=== PATIENT | female | born 1935 | race Asian ===

== ENCOUNTER 2017-03-09 17:40 | Emergency (ER) | payer MEDICAID, OTHER ==
[~2017-03-09] VITALS: Ht 154.9 cm; Wt 51.0 kg
[~2017-03-09 17:40] MED LIST: ASPI81CT89 PO; NITR0.4T2 SL; SYN.025 PO
[2017-03-09 18:20] VITALS: BP 155/68
--- NOTE | 2017-03-09 19:26 | NUR ---
PATIENT TO ER BED 8.
--- NOTE | 2017-03-09 19:27 | NUR ---
PATIENT PRESENTS TO ED WITH C/O DENTAL PAIN, IMPACTED MOLAR HX---HTN, HYPERLIPIDEMIA, HYPOTHYROID . PT STATES IT HURTS X2 WEEKS. DENIES N/V/D; SKIN IS PINK/WARM/DRY; AAOX4 WITH EVEN AND STEADY GAIT; LUNGS CLEAR BL; HR EVEN AND REGULAR; PT DENIES ANY FEVER, CP, SOB, OR COUGH AT THIS TIME; PATIENT STATES PAIN OF 8/10 AT THIS TIME; PATIENT POSITIONED FOR COMFORT; HOB ELEVATED; BEDRAILS UP X2; BED DOWN. PT SPEAKS [place] ISLANDER, TRANSLATED BY DAUGHTER
--- NOTE | 2017-03-09 19:43 | NUR ---
DR. TONEY AT BEDSIDE
--- NOTE | 2017-03-09 19:43 | NUR ---
David tomlin in [facility] - 03/09/17 at 1946 by MEDDCV PATIENT BEING EVALUATED BY DR. KWOK.
[2017-03-09] MEDS ORDERED: IBUPROFEN 600 MG TAB PO ONE (19:50)
[2017-03-09 20:10] VITALS: BP 137/68
--- NOTE | 2017-03-09 20:10 | NUR ---
Patient discharged with v/s stable. Written and verbal after care instructions given and explained. Patient alert, oriented and verbalized understanding of instructions. Ambulatory with steady gait. All questions addressed prior to discharge. ID band removed. Patient advised to follow up with PMD. Rx of Amoxicillin, Ibuprofen, and Tylenol #3 given. Patient educated on indication of medication including possible reaction and side effects. Opportunity to ask questions provided and answered.
== END 2017-03-09 20:10 | disposition home or self-care (01) ==
LOC: MED 17:40
DX: K02.9 Dental caries, unspecified (principal); I10 Essential (primary) hypertension; E03.9 Hypothyroidism, unspecified; E78.5 Hyperlipidemia, unspecified
CPT/HCPCS: 99283

== ENCOUNTER 2017-09-15 15:05 | Emergency (ER) | payer OTHER ==
[~2017-09-15] VITALS: Ht 153.7 cm; Wt 51.8 kg
[2017-09-15 15:30] VITALS: BP 141/61
--- NOTE | 2017-09-15 16:23 | NUR ---
PATIENT TO ER BED 1
--- NOTE | 2017-09-15 16:30 | NUR ---
81F BIB FAMILY C/O 03/09 "DULL" INTERMITTENT MID/LEFT LOWER ABDOMINAL PAIN X LAST NIGHT WITH NAUSEA. PT DENIES ANY V/D OR URINARY COMPLAINTS; PT IS AOX4, RR ARE EVEN AND UNLABORED; NAD, VSS, ER MD AWARE OF PT STATUS; WILL CONTINUE TO MONITOR.
[2017-09-15] MEDS ORDERED: ONDANSETRON 4 MG ODT PO ONE (17:00)
[2017-09-15] MEDS ORDERED: KETOROLAC 60 MG/2 ML VIAL IM ONE (17:00)
[2017-09-15] MEDS ORDERED: ONDANSETRON 4 MG/2 ML VIAL IM ONE (17:20)
--- NOTE | 2017-09-15 17:21 | NUR ---
pt to ct via caity accompanied by radiology transporter
[2017-09-15 17:27] LABS: BASOPHILS # (AUTO) 0.1 K/uL (0.00-0.22); BASOPHILS % (AUTO) 1.3 % (0.0-2.0); EOSINOPHILS % (AUTO) 0.7 % (0.0-4.0); HEMATOCRIT 33.8 % (36-48); HEMOGLOBIN 11.3 g/dL (12.0-16.0); LYMPHOCYTES # (AUTO) 0.9 K/uL (2.5-16.5); LYMPHOCYTES % (AUTO) 12.9 % (20.5-51.1); MEAN CORPUSCULAR HEMOGLOBIN 30 pg (27-31); MEAN CORPUSCULAR HGB CONC 33 g/dL (33-37); MEAN CORPUSCULAR VOLUME 90 fL (80-94); MONOCYTES # (AUTO) 0.5 K/uL (0.8-1.0); MONOCYTES % (AUTO) 7.1 % (1.7-9.3); NEUTROPHILS # (AUTO) 5.3 K/uL (1.8-7.7); PLATELET COUNT (AUTO) 128 K/uL (140-450); RED BLOOD CELL COUNT(AUTO) 3.74 MIL/uL (4.20-5.40); RED CELL DISTRIBUTION WIDTH 12.1 % (11.6-13.7); WHITE BLOOD COUNT (AUTO) 6.8 K/uL (4.8-10.8)
[2017-09-15 17:38] LABS: ANION GAP 13.8 (8-16); CHLORIDE 100 mmol/L (98-107); CREATININE 1.2 mg/dL (0.6-1.3); GLUCOSE 115 mg/dL (74-106); POTASSIUM 3.8 mmol/L (3.5-5.1); SODIUM SERUM 137 mmol/L (136-145); UREA NITROGEN, BLOOD 23 mg/dL (7-18)
[2017-09-15 17:40] LABS: ALBUMIN 3.8 g/dL (3.4-5.0); ASPARTATE AMINOTRANSFERASE 21 U/L (15-37); TOTAL BILIRUBIN 0.6 mg/dL (0.0-1.0)
--- NOTE | 2017-09-15 18:58 | NUR ---
Patient discharged with v/s stable. Written and verbal after care instructions given and explained. Patient alert, oriented and verbalized understanding of instructions. Ambulatory with steady gait. All questions addressed prior to discharge. ID band removed. Patient advised to follow up with PMD. Rx of Tramadol, Sulfazine, and Cipro given. Patient educated on indication of medication including possible reaction and side effects. Opportunity to ask questions provided and answered.
[2017-09-15 18:59] VITALS: BP 119/70
== END 2017-09-15 18:58 | disposition home or self-care (01) ==
LOC: MED 15:05
DX: K57.92 Diverticulitis of intestine, part unspecified, without perforation or abscess without bleeding (principal); I10 Essential (primary) hypertension; E03.9 Hypothyroidism, unspecified; Z79.899 Other long term (current) drug therapy
CPT/HCPCS: 36415; 74176; 80053; 85025; 96372; 99285; J1885; J2405

== ENCOUNTER 2017-09-17 00:50 | Inpatient (IN) | payer OTHER ==
[2017-09-17] VITALS (7 sets, daily range): BP systolic 111–149; BP diastolic 52–72
[~2017-09-17] VITALS: Ht 167.6 cm; Wt 64.9 kg
--- NOTE | 2017-09-17 00:51 | NUR ---
PATIENT BIB WHEELCHAIR TO ER BED 10.
--- NOTE | 2017-09-17 00:59 | NUR ---
81Y/F PT. PRESENTS TO ED WITH C/O ABDOMINAL PAIN.PT. WAS SEEN BY MD 2 DAYS AGO, DX. DIVERTICULITIS, GOT TREAT CIPRO, TRAMADOL, PAIN NOT RELIEFE WITH EPISODE OF N/V. HX. HYPOTHYROIDISM. AAO X4, AMBULATE VIA W/C. RESPIRATIONS ROOM AIR, EVEN AND UNLABORED, BL LUNG CLEAR. ABDOMEN SOFT, NON TENDER, ACTIVE BS X4. VSS, ER MADE AWARE OF PT. STATUS.
--- NOTE | 2017-09-17 00:59 | NUR ---
Patient being evaluated by at bedside.
[2017-09-17] MEDS ORDERED: NACL 0.9% 1,000 ML IV SCH (01:02)
[2017-09-17] MEDS ORDERED: metroNIDAZOLE 500 MG/NS PREMIX 100 ML IV ONE (01:05)
[2017-09-17] MEDS ORDERED: ONDANSETRON 4 MG/2 ML VIAL IVP ONE (01:05)
[2017-09-17] MEDS ORDERED: LEVOFLOXACIN 500 MG TAB PO ONE (01:05)
[2017-09-17] MEDS ORDERED: fentaNYL 0.05 MG/ML VIAL IVP ONE (01:05)
[2017-09-17 01:19] LABS: BASOPHILS # (AUTO) 0.2 K/uL (0.00-0.22); BASOPHILS % (AUTO) 2.1 % (0.0-2.0); EOSINOPHILS # (AUTO) 0.1 K/uL (0-0.4); EOSINOPHILS % (AUTO) 0.9 % (0.0-4.0); HEMATOCRIT 31.9 % (36-48); HEMOGLOBIN 10.6 g/dL (12.0-16.0); LYMPHOCYTES # (AUTO) 1.2 K/uL (2.5-16.5); LYMPHOCYTES % (AUTO) 14.7 % (20.5-51.1); MEAN CORPUSCULAR HEMOGLOBIN 30 pg (27-31); MEAN CORPUSCULAR HGB CONC 33 g/dL (33-37); MEAN CORPUSCULAR VOLUME 91 fL (80-94); MONOCYTES # (AUTO) 0.5 K/uL (0.8-1.0); MONOCYTES % (AUTO) 5.6 % (1.7-9.3); NEUTROPHILS # (AUTO) 6.2 K/uL (1.8-7.7); NEUTROPHILS % (AUTO) 76.7 % (42.2-75.2); PLATELET COUNT (AUTO) 135 K/uL (140-450); RED BLOOD CELL COUNT(AUTO) 3.51 MIL/uL (4.20-5.40); WHITE BLOOD COUNT (AUTO) 8.3 K/uL (4.8-10.8)
[2017-09-17 01:28] LABS: ANION GAP 11.2 (8-16); CARBON DIOXIDE 27.3 mmol/L (21-32); CHLORIDE 97 mmol/L (98-107); CREATININE 1.4 mg/dL (0.6-1.3); GLUCOSE 132 mg/dL (74-106); POTASSIUM 3.5 mmol/L (3.5-5.1); SODIUM SERUM 132 mmol/L (136-145); UREA NITROGEN, BLOOD 26 mg/dL (7-18)
[2017-09-17 01:35] LABS: ALBUMIN 3.6 g/dL (3.4-5.0); ASPARTATE AMINOTRANSFERASE 22 U/L (15-37); TOTAL BILIRUBIN 0.8 mg/dL (0.0-1.0)
--- NOTE | 2017-09-17 01:35 | NUR ---
Patient will be admitted to care of . Admited to TELEMETRY. Will go to [id number]. Belongings list completed. Report to AMANDA AGUIRRE.
[2017-09-17 01:39] LABS: PROTHROMBIN TIME 9.9 secs (10.8-13.4)
[2017-09-17] MEDS: NACL 0.9% 1,000 ML IV SCH ×4 (01:54→23:36)
[2017-09-17] MEDS ORDERED: METOCLOPRAMIDE 10 MG/2 ML INJ VIAL IVP PRN (01:55)
[2017-09-17] MEDS ORDERED: HYDROcodone/APAP 7.5/325 MG 1 TAB PO PRN (01:55)
[2017-09-17] MEDS ORDERED: ACETAMINOPHEN 325 MG TAB PO PRN (01:55)
--- NOTE | 2017-09-17 01:55 | NUR ---
PATIENT ADMITTED TO THE UNIT FROM ER. AMBULATORY. AWAKE, ALERT AND ORIENTED. NO SIGNS AND SYMPTOMS OF DISTRESS NOTED, NO COMPLAINTS OF PAIN AT THIS TIME. MANDARIN SPEAKER. PATIENTS CHILDREN AT BEDSIDE AND WAS ABLE TO TRANSLATE QUESTIONS TO HER. IV SITE NOTED ON LEFT AC, IVF INFUSING WELL. BED IN LOWEST POSITION, SIDE RAILS UP AND CALL LIGHT WITHIN REACH. WILL CONTINUE TO MONITOR.
[2017-09-17 01:56] LABS: APPEARANCE,URINE CLEAR (CLEAR); BILIRUBIN,URINE NEGATIVE (NEGATIVE); BLOOD, URINE NEGATIVE (NEGATIVE); COLOR,URINE YELLOW (YELLOW); LEUKOCYTE ESTERASE ,URINE NEGATIVE (NEGATIVE); NITRITE, URINE NEGATIVE (NEGATIVE); UGLUCOSE NEGATIVE (NEGATIVE)
[2017-09-17 02:04] LABS: HYALINE CASTS, URINE 0-10 /LPF (None Seen); RBC,URINE 0-5 (RARE) /HPF (0-5); WBC,URINE 0-5 (RARE) /HPF (0-5)
[2017-09-17 02:25] LABS: BARBITURATE, URINE NEG. ng/ml (NEG <=200); BENZODIAZEPINE, URINE NEG. ng/mL (NEG <=200); CANNABINOID, URINE NEG. ng/mL (NEG <=50); COCAINE, URINE NEG. ng/mL (NEG <=300); OPIATE, URINE NEG. ng/mL (NEG <=2000); PHENCYCLIDINE SCREEN,URINE NEG. ng/mL (NEG <=25)
[2017-09-17 02:34] LABS: FREE T4 (FREE THYROXINE) 1.25 ng/dL (0.76-1.46); PHOSPHORUS 4.1 mg/dL (2.5-4.9); THYROID STIMULATING HORMONE 4.13 uIU/mL (0.34-3.74)
[2017-09-17] MEDS ORDERED: ATOR10TA PO (04:29)
[2017-09-17] MEDS ORDERED: AMLO10TA PO (04:29)
[2017-09-17 06:53] LABS: CHLORIDE 100 mmol/L (98-107); CREATININE 1.2 mg/dL (0.6-1.3); GLUCOSE 136 mg/dL (74-106); SODIUM SERUM 134 mmol/L (136-145); UREA NITROGEN, BLOOD 22 mg/dL (7-18)
--- NOTE | 2017-09-17 07:25 | NUR ---
PATIENT REPORT GIVEN TO MORNING NURSE. PATIENT IS IN STABLE CONDITION.
--- NOTE | 2017-09-17 07:30 | NUR ---
RECEIVED REPORT FROM FLEECER NURSE, PT IS RESTING IN BED, A/OX4, AMBULATES WITH ASSIST, IV IS ON THE LEFT AC, PATENT, INTACT, FLUSHING WELL, SKIN IS INTACT, NO S/S OF RESPIRATORY DISTRESS OR DISCOMFORT NOTED, SAFETY/FALL PRECAUTIONS ARE IN PLACE, DISCUSSED PLAN OF CARE WITH PT AND FAMILY, THEY BOTH VERBALIZED UNDERSTANDING, CALL LIGHT IS WITHIN REACH, WILL CONTINUE TO MONITOR.
[2017-09-17] MEDS ORDERED: metroNIDAZOLE 500 MG/NS PREMIX 100 ML IV SCH (08:00)
--- NOTE | 2017-09-17 08:31 | NUR ---
PATIENT HAS BEEN SCREENED AND CATEGORIZED MODERATE NUTRITION RISK. PATIENT WILL BE SEEN WITHIN 3-5 DAYS OF ADMISSION. 09/19/17-09/21/[address]
--- NOTE | 2017-09-17 08:42 | NUR ---
FAXED INITIAL REVIEW TO [facility], PHONE MARIBETH [phone]
[2017-09-17] MEDS: LEVOTHYROXINE 0.025 MG TAB PO SCH (08:44)
[2017-09-17] MEDS: DOCUSATE SODIUM 100 MG GELCAP PO SCH ×2 (08:44→20:19)
[2017-09-17] MEDS: amLODIPine 5 MG TAB PO SCH (08:44)
--- NOTE | 2017-09-17 08:44 | NUR ---
DUE MEDICATION GIVEN, PT TOLERATED WELL, FAMILY IS AT BEDSIDE.
[2017-09-17] MEDS: ASPIRIN 81 MG TAB.CHEW PO SCH (08:45)
[2017-09-17] MEDS: metroNIDAZOLE 500 MG/NS PREMIX 100 ML IV SCH ×2 (08:45→17:49)
[2017-09-17 09:43] LABS: CHOL/HDL RATIO 3.8 (1-4.5)
--- NOTE | 2017-09-17 10:35 | NUR ---
ASSISTED PT TO RESTROOM AND BACK INTO BED.
--- NOTE | 2017-09-17 12:30 | NUR ---
PATIENT'S DAUGHTER IS AT BEDSIDE, DAUGHTER STATED THE PATIENT HAD JUST VOMITED THE ORAL CONTRAST SHE HAD BEEN DRINKING. I LET THE PATIENT'S FAMILY MEMBER KNOW I WOULD INFORM THE DOCTOR.
--- NOTE | 2017-09-17 13:32 | NUR ---
I INFORMED DR. NAZARIO THE PATIENT HAD VOMITED AND WAS NOT ABLE TO FINISH THE ORAL CONTRAST. PER DR. NAZARIO IT IS OKAY TO CONTINUE WITH THE IV CONTRAST. CALLED RADIOLOGY TO LET PAULO KNOW AND LEFT A MESSAGE WITH FAN.
--- NOTE | 2017-09-17 13:45 | NUR ---
PT OFF UNIT TO HAVE CT-SCAN DONE.
--- NOTE | 2017-09-17 15:30 | NUR ---
PT IS RESTING IN BED, FAMILY MEMBER IS AT BEDSIDE, CALL LIGHT IS WITHIN REACH.
--- NOTE | 2017-09-17 17:10 | NUR ---
ASSISTED PT TO RESTROOM AND BACK INTO BED. CALL LIGHT WITHIN REACH.
--- NOTE | 2017-09-17 19:07 | NUR ---
ENDORSED PT TO FRONT EDGER NURSE FOR CONTINUITY OF CARE, PT STABLE AT THIS TIME, FAMILY MEMBER IS AT BEDSIDE.
--- NOTE | 2017-09-17 19:08 | NUR ---
RECEIVED REPORT FROM DAY NURSE ISAAC PATEL. PT IN STABLE CONDITION. NO S/S OF DISTRESS NOTED. PT IS AAOX4, ON ROOM AIR. IV TO L AC 20G, PATENT AND INTACT, INFUSING WELL. PT SKIN IS INTACT, RESPIRATIONS ARE EVEN AND UNLABORED. SKIN IS WARM AND DRY TO TOUCH. BOWEL SOUNDS PRESENT. DAUGHTER IS AT THE BEDSIDE. INITIAL ASSESSMENT COMPLETED. PLAN OF CARE DISCUSSED WITH PT AND DAUGHTER AT THE BEDSIDE, VERBALIZED UNDERSTANDING. ALL SAFETY PRECAUTIONS MET, CALL LIGHT WITHIN REACH, WILL CONTINUE TO MONITOR
--- NOTE | 2017-09-17 20:00 | NUR ---
DR. GRULLON PAGED TO DISCUSS CT SCAN RESULTS WITH PT AND FAMILY
--- NOTE | 2017-09-17 20:10 | NUR ---
DR. GRULLON IN TO SEE PT
[2017-09-17] MEDS: ATORVASTATIN 20 MG TAB PO SCH (20:19)
[2017-09-18] VITALS: BP 121/57
[2017-09-18] MEDS: metroNIDAZOLE 500 MG/NS PREMIX 100 ML IV SCH ×3 (00:47→17:12)
--- NOTE | 2017-09-18 01:00 | NUR ---
PT REMAINS STABLE, NO S/S OF DISTRESS NOTED. VS STABLE, ALL SAFETY PRECAUTIONS MET, CALL LIGHT WITHIN REACH, WILL CONTINUE TO MONITOR
[2017-09-18 04:00] VITALS: BP 110/47
[2017-09-18 06:13] LABS: BASOPHILS # (AUTO) 0.1 K/uL (0.00-0.22); BASOPHILS % (AUTO) 2.6 % (0.0-2.0); EOSINOPHILS % (AUTO) 0.8 % (0.0-4.0); HEMATOCRIT 28.5 % (36-48); HEMOGLOBIN 9.4 g/dL (12.0-16.0); LYMPHOCYTES # (AUTO) 0.6 K/uL (2.5-16.5); LYMPHOCYTES % (AUTO) 16.6 % (20.5-51.1); MEAN CORPUSCULAR HEMOGLOBIN 30 pg (27-31); MEAN CORPUSCULAR HGB CONC 33 g/dL (33-37); MEAN CORPUSCULAR VOLUME 90 fL (80-94); MONOCYTES # (AUTO) 0.3 K/uL (0.8-1.0); MONOCYTES % (AUTO) 8.9 % (1.7-9.3); NEUTROPHILS # (AUTO) 2.8 K/uL (1.8-7.7); NEUTROPHILS % (AUTO) 71.1 % (42.2-75.2); PLATELET COUNT (AUTO) 99 K/uL (140-450); RED BLOOD CELL COUNT(AUTO) 3.17 MIL/uL (4.20-5.40); WHITE BLOOD COUNT (AUTO) 3.8 K/uL (4.8-10.8)
[2017-09-18 06:20] LABS: ANION GAP 10.9 (8-16); CARBON DIOXIDE 26.5 mmol/L (21-32); CHLORIDE 107 mmol/L (98-107); CREATININE 1.1 mg/dL (0.6-1.3); GLUCOSE 99 mg/dL (74-106); POTASSIUM 4.4 mmol/L (3.5-5.1); SODIUM SERUM 140 mmol/L (136-145); UREA NITROGEN, BLOOD 11 mg/dL (7-18)
[2017-09-18 06:25] LABS: MAGNESIUM 1.8 mg/dL (1.8-2.4); PHOSPHORUS 3.5 mg/dL (2.5-4.9)
--- NOTE | 2017-09-18 07:37 | NUR ---
REPORT GIVEN TO DAY NURSE CHRISTOPHER RN FOR CONTINUITY OF CARE, PT REMAINS STABLE
--- NOTE | 2017-09-18 07:38 | NUR ---
RECEIVED REPORT FROM ELEVATOR EXAMINER AND ADJUSTER NURSE CARMEL AT BEDSIDE FOR CONTINUITY OF CARE. PT'S SON IS AT BEDSIDE. INTRODUCED SELF AND UPDATED BOARD. PT IN STABLE CONDITION.
[2017-09-18 08:00] VITALS: BP 122/54
[2017-09-18] MEDS: ASPIRIN 81 MG TAB.CHEW PO SCH (08:32)
[2017-09-18] MEDS: LACTOBACILLUS RHAMNOSUS GG 1 EACH CAP PO SCH (08:32)
[2017-09-18] MEDS: DOCUSATE SODIUM 100 MG GELCAP PO SCH ×2 (08:32→20:17)
[2017-09-18] MEDS: LEVOTHYROXINE 0.025 MG TAB PO SCH (08:32)
[2017-09-18] MEDS: amLODIPine 5 MG TAB PO SCH (08:32)
--- NOTE | 2017-09-18 08:36 | NUR ---
PATIENT HAS BEEN SCREENED AND CATEGORIZED MODERATE NUTRITION RISK. PATIENT WILL BE SEEN WITHIN 3-5 DAYS OF ADMISSION. 09/19/17-09/21/[address]
--- NOTE | 2017-09-18 08:40 | NUR ---
ADMINISTERED SCHEDULED MEDS. GAVE MED PURPOSE AND SIDE EFFECTS INFO TO SON YISEL WHO TRANSLATED FOR PT. YISEL AND PT VERBALIZED UNDERSTANDING. PT TOLERATED MEDS WELL. NO SIGNS OF DISTRESS. PT DENIES PAIN. FAMILY MEMBER AT BEDSIDE. INSTRUCTED USE OF CALL LIGHT. BED IN LOW POSITION, WHEELS LOCKED. WILL CONTINUE TO MONITOR.
--- NOTE | 2017-09-18 09:56 | NUR ---
FAXED CONCURRENT REVIEW TO [facility] [phone] PHONE [phone] MARIBETH Ga [id number]
[2017-09-18 12:00] VITALS: BP 117/54
--- NOTE | 2017-09-18 12:03 | NUR ---
CHECKED ON PT IN ROOM. VS: WNL. FAMILY MEMBER AT BEDSIDE. CHANGED IV BAG OF NS. INFUSING AT 100ML/HR. PT TOLERATING WELL. NO SIGNS OF DISTRESS. PT DENIES NAUSEA. DENIES HAVING ABD PAIN. CALL LIGHT WITHIN REACH. WILL CONTINUE TO MONITOR.
[2017-09-18 15:09] LABS: FOLIC ACID 14.2 ng/mL (>3.0)
[2017-09-18 16:00] VITALS: BP 100/45
--- NOTE | 2017-09-18 17:00 | NUR ---
PT'S SON AND SON'S GIRLFRIEND AT BEDSIDE. GAVE INSTRUCTIONS ABOUT OCCULT STOOL AND CHANGE IN DIET TO FULL LIQUID AND ADVANCE TOLERATED. TRANSLATED FOR PT. VERBALIZED UNDERSTANDING.
[2017-09-18] MEDS: NACL 0.9% 1,000 ML IV SCH (17:54)
--- NOTE | 2017-09-18 19:30 | NUR ---
ENDORSED PT TO PASTRY COOK HELPER NURSE MARYCRUZ AT BEDSIDE FOR CONTINUITY OF CARE. PT IN STABLE CONDITION. FAMILY AT BEDSIDE.
--- NOTE | 2017-09-18 19:35 | NUR ---
RECEIVED REPORT FROM DAY RN, PATIENT RESTING IN BED, NO S/S OF DISTRESS NOTED, RESPIRATION EVEN AND UNLABORED, EDUCATED PATIENT ABOUT THE OCCULT BLOOD TEST, PATIENT VERBALIZED UNDERSTANDING. IV PATENT AND INTACT, INFUSING NS AT 100ML/HR. CALL LIGHT WITHIN REACH, SAFETY MEASURE ENSURED, WILL CONTINUE TO MONITOR.
[2017-09-18] MEDS: ATORVASTATIN 20 MG TAB PO SCH (20:17)
--- NOTE | 2017-09-18 20:27 | NUR ---
DUE MEDICATION GIVEN, PATIENT TOLERATED WELL, NO S/S OF DISTRESS NOTED, WILL CONTINUE TO MONITOR.
[2017-09-18] MEDS ORDERED: LEVOFLOXACIN 750 MG/D5W PREMIX 150 ML IV SCH (21:00)
[2017-09-18] MEDS ORDERED: POLYETHYLENE GLYCOL 17 GM/PKT PO SCH (21:00)
--- NOTE | 2017-09-18 22:30 | NUR ---
PATIENT IS SLEEPING, NO S/S OF DISTRESS NOTED, RESPIRATION EVEN AND UNLABORED, CALL LIGHT WITHIN REACH, SAFETY MEASURE ENSURED, WILL CONTINUE TO MONITOR.
[2017-09-19] VITALS: BP 124/54
[2017-09-19] MEDS: metroNIDAZOLE 500 MG/NS PREMIX 100 ML IV SCH ×3 (00:16→17:22)
--- NOTE | 2017-09-19 00:40 | NUR ---
STOOL COLLECTED, WILL SEND TO LAB. DUE MEDICATION FLAGYL STARTED, PATIENT TOLERATED WELL. NO S/S OF DISTRESS NOTED, WILL CONTINUE TO MONITOR.
--- NOTE | 2017-09-19 02:40 | NUR ---
PATIENT IS SLEEPING, EASY TO AROUSE, NO S/S OF DISTRESS NOTED, RESPIRATION EVEN AND UNLABORED, CALL LIGHT WITHIN REACH, SAFETY MEASURE ENSURED, WILL CONTINUE TO MONITOR.
--- NOTE | 2017-09-19 04:07 | NUR ---
PATIENT AMBULATED TO THE BATHROOM AND VOIDED X1. NO S/S OF DISTRESS NOTED, RESPIRATION EVEN AND UNLABORED, CALL LIGHT WITHIN REACH, SAFETY MEASURE ENSURED, WILL CONTINUE TO MONITOR.
[2017-09-19] MEDS: NACL 0.9% 1,000 ML IV SCH ×3 (04:10→23:54)
--- NOTE | 2017-09-19 06:00 | NUR ---
PATIENT STATED," THE MEDICATION MADE ME WENT TO THE BATHROOM TOO MANY TIMES." EDUCATED THE PATIENT LAXATIVES WILL INCREASE BOWEL MOVEMENTS, AND I WOULD INFORMED THE DAY SHIFT REGARDING THE ISSUE.
--- NOTE | 2017-09-19 07:10 | NUR ---
ENDORSED PLAN OF CARE TO DAY SHIFT RN. PATIENT IS IN STABLE CONDITION.
--- NOTE | 2017-09-19 07:11 | NUR ---
RECEIVED REPORT FROM ENDS DOWN CHECKER NURSE MARYCRUZ AT BEDSIDE FOR CONTINUITY OF CARE. PT IS AWAKE AND ORIENTED. INTRODUCED SELF AND UPDATED BOARD. PT GOT UP TO USE BATHROOM. WALKED WITH STEADY GAIT. PT DENIES PAIN. NO SIGNS OF DISTRESS. ASSISTED PT BACK TO BED. CALL LIGHT WITHIN REACH, BED IN LOW POSITION, WHEELS LOCKED. WILL CONTINUE TO MONITOR.
[2017-09-19 07:18] LABS: BASOPHILS # (AUTO) 0.1 K/uL (0.00-0.22); BASOPHILS % (AUTO) 2.3 % (0.0-2.0); EOSINOPHILS # (AUTO) 0.1 K/uL (0-0.4); EOSINOPHILS % (AUTO) 1.6 % (0.0-4.0); HEMATOCRIT 29.7 % (36-48); HEMOGLOBIN 9.6 g/dL (12.0-16.0); LYMPHOCYTES # (AUTO) 0.4 K/uL (2.5-16.5); LYMPHOCYTES % (AUTO) 10.3 % (20.5-51.1); MEAN CORPUSCULAR HEMOGLOBIN 30 pg (27-31); MEAN CORPUSCULAR HGB CONC 32 g/dL (33-37); MEAN CORPUSCULAR VOLUME 92 fL (80-94); MONOCYTES # (AUTO) 0.3 K/uL (0.8-1.0); MONOCYTES % (AUTO) 7.8 % (1.7-9.3); PLATELET COUNT (AUTO) 122 K/uL (140-450); RED BLOOD CELL COUNT(AUTO) 3.22 MIL/uL (4.20-5.40); RED CELL DISTRIBUTION WIDTH 12.2 % (11.6-13.7); WHITE BLOOD COUNT (AUTO) 3.9 K/uL (4.8-10.8)
--- NOTE | 2017-09-19 07:23 | NUR ---
ENDORSED PT TO YARD CONDUCTOR NURSE CHRISTA AT BEDSIDE FOR CONTINUITY OF CARE. PT IN STABLE CONDITION. Addendum: 09/19/17 at 1924 by Nisha Palomo RN CHARTED WRONG TIME
[2017-09-19 07:29] LABS: ANION GAP 13.2 (8-16); CARBON DIOXIDE 25.3 mmol/L (21-32); CHLORIDE 106 mmol/L (98-107); GLUCOSE 87 mg/dL (74-106); POTASSIUM 4.5 mmol/L (3.5-5.1); SODIUM SERUM 140 mmol/L (136-145); UREA NITROGEN, BLOOD 11 mg/dL (7-18)
[2017-09-19 08:00] VITALS: BP 111/46
[2017-09-19] MEDS: LACTOBACILLUS RHAMNOSUS GG 1 EACH CAP PO SCH (09:19)
[2017-09-19] MEDS: amLODIPine 5 MG TAB PO SCH (09:19)
[2017-09-19] MEDS: ASPIRIN 81 MG TAB.CHEW PO SCH (09:19)
[2017-09-19] MEDS: LEVOTHYROXINE 0.025 MG TAB PO SCH (09:19)
[2017-09-19] MEDS ORDERED: INUL1CTB PO ×2 (11:07→11:22)
[2017-09-19] MEDS ORDERED: AZIT250T3 PO (11:08)
[2017-09-19] MEDS ORDERED: METR250T2 PO (11:22)
[2017-09-19] MEDS ORDERED: LEVO750T2 PO (11:22)
[2017-09-19] MEDS ORDERED: ASCO500T45 PO (11:22)
[2017-09-19] MEDS ORDERED: FERR324T11 PO (11:22)
--- NOTE | 2017-09-19 12:00 | NUR ---
CONSENT FORM FOR COLONOSCOPY OBTAINED BY PT'S DAUGHTER DELPHINE WHO TRANSLATED AND SIGNED FOR PT. DR. HWANG CAME AND EXPLAINED PROCEDURE TO FAMILY. PT VERBALIZED UNDERSTANDING OF PROCEDURE.
[2017-09-19] MEDS ORDERED: APAP/BUTAL/CAFF 325/50/40 MG 1 TAB PO PRN (12:20)
[2017-09-19] MEDS: LACTULOSE 20 GM/30 ML UDC PO SCH ×3 (13:10→21:57)
--- NOTE | 2017-09-19 14:17 | NUR ---
CM NOTE CONCURRENT REVIEW FAXED TO [facility] / FAX# [phone], ATTN: MARIBETH #[phone] [id number]
[2017-09-19 16:00] VITALS: BP 117/60
--- NOTE | 2017-09-19 16:57 | NUR ---
PT RESTING IN BED RIGHT NOW. FAMILY AT BEDSIDE. ASSISTED PT TO BSC. PT DENIES PAIN. NO SIGNS OF DISTRESS. WILL CONTINUE TO MONITOR.
[2017-09-19] MEDS ORDERED: BOWEL EVACUANT DRINK 4,000 ML PDS PO SCH (19:00)
--- NOTE | 2017-09-19 19:24 | NUR ---
ENDORSED PT TO HIGH LIFT OPERATOR NURSE CHRISTA AT BEDSIDE FOR CONTINUITY OF CARE. PT IN STABLE CONDITION.
--- NOTE | 2017-09-19 19:25 | NUR ---
RECEIVED REPORT FROM AM NURSE. PT IS AAOX4. ON ROOM AIR. BED SIDE COMMODE AT BEDSIDE. IV ACCESS INTACT RUNNING NS. NO SIGNS OF ACUTE DISTRESS NOTED, RESPIRATION EVEN AND UNLABORED. BED IN LOW POSITION, BILATERAL HALF SIDE RAIL UP, CALL LIGHT WITHIN REACH, WILL CONTINUE TO MONITOR.
[2017-09-19 20:00] VITALS: BP 141/66
[2017-09-19] MEDS: POLYETHYLENE GLYCOL 17 GM/PKT PO SCH ×2 (21:00→21:57)
[2017-09-19] MEDS: ATORVASTATIN 20 MG TAB PO SCH (21:56)
--- NOTE | 2017-09-19 22:19 | NUR ---
PT REFUSED MIRALAX. RISKS AND BENEFITS EXPLAINED. DAUGHTER TRANSLATED, BUT PT STILL REFUSED THIS MEDICATION.
[2017-09-20] VITALS: BP 144/76
[2017-09-20] MEDS: metroNIDAZOLE 500 MG/NS PREMIX 100 ML IV SCH ×2 (00:53→09:43)
--- NOTE | 2017-09-20 02:35 | NUR ---
PT IS SLEEPING, AROUSABLE TO VOICE. DAUGHTER AT THE BEDSIDE. NO SIGNS OF ACUTE DISTRESS NOTED. RESPIRATIONS EVEN AND UNLABORED. BED IN LOW POSITION, BILATERAL HALF SIDE RAILS UP, CALL LIGHT WITHIN REACH, WILL CONTINUE TO MONITOR.
[2017-09-20 06:28] LABS: BASOPHILS # (AUTO) 0.1 K/uL (0.00-0.22); BASOPHILS % (AUTO) 1.7 % (0.0-2.0); EOSINOPHILS # (AUTO) 0.1 K/uL (0-0.4); EOSINOPHILS % (AUTO) 1.8 % (0.0-4.0); HEMATOCRIT 30.4 % (36-48); HEMOGLOBIN 10.1 g/dL (12.0-16.0); LYMPHOCYTES # (AUTO) 0.7 K/uL (2.5-16.5); LYMPHOCYTES % (AUTO) 18.5 % (20.5-51.1); MEAN CORPUSCULAR HEMOGLOBIN 30 pg (27-31); MEAN CORPUSCULAR HGB CONC 33 g/dL (33-37); MEAN CORPUSCULAR VOLUME 91 fL (80-94); MONOCYTES # (AUTO) 0.3 K/uL (0.8-1.0); MONOCYTES % (AUTO) 7.9 % (1.7-9.3); NEUTROPHILS # (AUTO) 2.8 K/uL (1.8-7.7); NEUTROPHILS % (AUTO) 70.1 % (42.2-75.2); PLATELET COUNT (AUTO) 148 K/uL (140-450); RED BLOOD CELL COUNT(AUTO) 3.33 MIL/uL (4.20-5.40); RED CELL DISTRIBUTION WIDTH 12.3 % (11.6-13.7)
[2017-09-20 06:45] LABS: MAGNESIUM 1.6 mg/dL (1.8-2.4); PHOSPHORUS 2.9 mg/dL (2.5-4.9)
[2017-09-20 06:46] LABS: ANION GAP 13.8 (8-16); CARBON DIOXIDE 24.1 mmol/L (21-32); CHLORIDE 109 mmol/L (98-107); GLUCOSE 94 mg/dL (74-106); POTASSIUM 3.9 mmol/L (3.5-5.1); SODIUM SERUM 143 mmol/L (136-145); UREA NITROGEN, BLOOD 9 mg/dL (7-18)
--- NOTE | 2017-09-20 07:29 | NUR ---
ENDORSED PT TO AM NURSE FOR CONTINUITY OF CARE. PT IS IN STABLE CONDITION.
--- NOTE | 2017-09-20 07:30 | NUR ---
RECEIVED REPORT FROM OFFICE MACHINE TECHNICIAN NURSE CHRISTA AT BEDSIDE FOR CONTINUITY OF CARE. PT IS AWAKE AND ORIENTED. IN STABLE CONDITION.
[2017-09-20 08:00] VITALS: BP 115/53
[2017-09-20] MEDS: LACTULOSE 20 GM/30 ML UDC PO SCH ×2 (09:00→12:49)
[2017-09-20] MEDS: ASPIRIN 81 MG TAB.CHEW PO SCH (09:00)
[2017-09-20] MEDS: LEVOTHYROXINE 0.025 MG TAB PO SCH (09:00)
[2017-09-20] MEDS: amLODIPine 5 MG TAB PO SCH (09:00)
[2017-09-20] MEDS: POLYETHYLENE GLYCOL 17 GM/PKT PO SCH (09:00)
[2017-09-20] MEDS: LACTOBACILLUS RHAMNOSUS GG 1 EACH CAP PO SCH (09:00)
--- NOTE | 2017-09-20 09:45 | NUR ---
CHECKED ON PT IN ROOM. RESTING COMFORTABLY IN BED. NON-ADMINISTERED PO MEDS DUE TO PT NPO FOR COLONOSCOPY. NO SIGNS OF DISTRESS. PT DENIES PAIN. WILL CONTINUE TO MONITOR.
[2017-09-20] MEDS: NACL 0.9% 1,000 ML IV SCH (09:54)
--- NOTE | 2017-09-20 11:44 | NUR ---
PT'S DAUGHTER AT BEDSIDE. PT GOT UP TO USE BATHROOM. WALKED WITH STEADY GAIT AND STANDBY ASSIST BY DAUGHTER DELPHINE. NO SIGNS OF DISTRESS. PT HAS NO COMPLAINTS AT THIS TIME. WILL CONTINUE TO MONITOR.
--- NOTE | 2017-09-20 13:19 | NUR ---
Clinical review faxed to Thaddeus at [phone]
--- NOTE | 2017-09-20 15:17 | NUR ---
PT PICKED UP FOR OR. LEFT UNIT VIA BED ACCOMPANIED BY RN. PT LEFT IN STABLE CONDITION.
[2017-09-20] MEDS ORDERED: MAG SULF 2000 MG/WATER PREMIX 50 ML IV SCH (15:30)
[2017-09-20] MEDS ORDERED: MIDAZOLAM 2 MG/2 ML VIAL ONE ×2 (15:43)
[2017-09-20] MEDS ORDERED: fentaNYL 0.05 MG/ML VIAL ONE (15:43)
[2017-09-20 16:00] VITALS: BP 129/61
[2017-09-20] MEDS ORDERED: MIDAZOLAM 2 MG/2 ML VIAL IVP ONE (16:05)
[2017-09-20] MEDS ORDERED: fentaNYL 0.05 MG/ML VIAL IVP ONE (16:05)
[2017-09-20] MEDS ORDERED: FAMO-90 PO (16:19)
[2017-09-20] MEDS ORDERED: LEVO750T2 PO (16:20)
--- NOTE | 2017-09-20 17:09 | NUR ---
night worker attempted several times 3X to contact Patients miguel odonnell to coordinate D/C for 09/21/17 No response and social work administrator left her voicemail MS.
--- NOTE | 2017-09-20 18:05 | NUR ---
PT D/C'D TO GO HOME. D/C INSTRUCTIONS, RX, FORMS, FOLLOW UP APPOINTMENT AND LABS WENT OVER WITH DAUGHTER. PT AND DAUGHTER VERBALIZED UNDERSTANDING. D/C IV FROM LEFT FA 20G. IV CATHETER TIP INTACT. APPLIED DRESSING TO SITE. NO BLEEDING NOTED. REMOVED ID BAND. PT CHANGED IN OWN CLOTHES AND LEFT WITH ALL PERSONAL BELONGINGS. TOLERATED FULL LIQUID DINNER WELL. PT LEFT IN STABLE CONDITION ACCOMPANIED BY DAUGHTER AND SON.
== END 2017-09-20 18:15 | disposition home or self-care (01) | DRG 241 ==
LOC: MED 00:50 → MTU 01:12
PROVIDERS: ADMIT Family Medicine; ATTEND Family Medicine
PROC: 0DB68ZX Excision of Stomach, Via Natural or Artificial Opening Endoscopic, Diagnostic (ICD-10-PCS; principal; 2017-09-20 17:20)
PROC: 0DJD8ZZ Inspection of Lower Intestinal Tract, Via Natural or Artificial Opening Endoscopic (ICD-10-PCS; 2017-09-20 17:20)
DX: K29.60 Other gastritis without bleeding (principal); N17.0 Acute kidney failure with tubular necrosis; D69.6 Thrombocytopenia, unspecified; E87.1 Hypo-osmolality and hyponatremia; E83.42 Hypomagnesemia; E11.51 Type 2 diabetes mellitus with diabetic peripheral angiopathy without gangrene; K57.32 Diverticulitis of large intestine without perforation or abscess without bleeding; E87.8 Other disorders of electrolyte and fluid balance, not elsewhere classified; I10 Essential (primary) hypertension; K57.30 Diverticulosis of large intestine without perforation or abscess without bleeding; D63.8 Anemia in other chronic diseases classified elsewhere; E03.9 Hypothyroidism, unspecified; E78.5 Hyperlipidemia, unspecified; Z90.49 Acquired absence of other specified parts of digestive tract; Z82.49 Family history of ischemic heart disease and other diseases of the circulatory system
CPT/HCPCS: 36415; 71010; 80048; 80053; 80305; 81001; 82150; 82272; 82550; 82553; 82607; 82728; 82746; 83036; 83540; 83605; 83690; 83735; 83874; 83880; 84100; 84439; 84443; 84484; 85025; 85045; 85610; 85730; 86677; 87040; 87081; 87086; 93005; 99285; J1956; J2250; J2405; J2765; J3010; J3475; J3490; J7030; Q0092; Q9967

== ENCOUNTER 2018-01-03 04:25 | Inpatient (IN) | payer OTHER ==
[~2018-01-03] VITALS: Ht 154.9 cm; Wt 55.8 kg
[~2018-01-03 04:25] MED LIST changes: +AMLO10TA PO; +ASCO500T45 PO; +ATOR10TA PO; +FAMO-90 PO; +FERR324T11 PO; +INUL1CTB PO; +LEVO750T2 PO; +METR250T2 PO
[2018-01-03 04:40] VITALS: BP 152/68
--- NOTE | 2018-01-03 04:40 | NUR ---
82/F BIB FAMILY W C/O 07/09 LLQ PAIN X 2 DAYS. REPORTS NAUSEA, DENIES V/D. PER DAUGHTER " SHE HAD THE SAME PROBLEM LAST YEAR AND THEY SAID ITS COLITIS". BS ACTIVE X4, ABD SOFT, ROUND, +TENDERNESS TO LLQ. DENIES MELENA/HEMATOCHEZIA, DENIES DYSURIA/HEMATURIA PMH: HTN, HLD, HYPOTHYROIDISM
[2018-01-03] MEDS ORDERED: ORE25 PO (04:46)
[2018-01-03] MEDS ORDERED: NACL 0.9% 1,000 ML IV ONE (04:53)
[2018-01-03] MEDS ORDERED: fentaNYL 0.05 MG/ML VIAL IVP ONE (04:55)
[2018-01-03] MEDS ORDERED: ONDANSETRON 4 MG/2 ML VIAL IVP ONE (04:55)
[2018-01-03 05:29] LABS: HEMATOCRIT 34.2 % (36-48); HEMOGLOBIN 11.4 g/dL (12.0-16.0); MEAN CORPUSCULAR HEMOGLOBIN 31 pg (27-31); MEAN CORPUSCULAR HGB CONC 33 g/dL (33-37); MEAN CORPUSCULAR VOLUME 91.5 fL (80-94); PLATELET COUNT (AUTO) 167 K/uL (140-450); RED BLOOD CELL COUNT(AUTO) 3.74 MIL/uL (4.20-5.40); RED CELL DISTRIBUTION WIDTH 12.7 % (11.6-13.7); WHITE BLOOD COUNT (AUTO) 9.2 K/uL (4.8-10.8)
[2018-01-03 05:39] LABS: ANION GAP 13.3 (8-16); ASPARTATE AMINOTRANSFERASE 35 U/L (15-37); CARBON DIOXIDE 28.4 mmol/L (21-32); CHLORIDE 100 mmol/L (98-107); CREATININE 1.1 mg/dL (0.6-1.3); GLUCOSE 148 mg/dL (74-106); LIPASE 187 U/L (73-393); POTASSIUM 3.7 mmol/L (3.5-5.1); SODIUM SERUM 138 mmol/L (136-145); TOTAL BILIRUBIN 0.8 mg/dL (0.0-1.0); UREA NITROGEN, BLOOD 26 mg/dL (7-18)
[2018-01-03 06:16] LABS: LYMPHOCYTES % (MANUAL) 9 % (20-46); MONOCYTES % (MANUAL) 4 % (5-12)
--- NOTE | 2018-01-03 06:30 | NUR ---
Patient appears to be resting comfortably in bed. Vital Signs within normal limits. Respirations even and unlabored. denies any pain at this time
[2018-01-03] MEDS ORDERED: metroNIDAZOLE 500 MG/NS PREMIX 100 ML IV ONE (06:40)
[2018-01-03] MEDS ORDERED: LEVOFLOXACIN 750 MG/D5W PREMIX 150 ML IV ONE (06:40)
[2018-01-03 06:47] LABS: APPEARANCE,URINE CLEAR (CLEAR); BILIRUBIN,URINE NEGATIVE (NEGATIVE); BLOOD, URINE TRACE-I (NEGATIVE); COLOR,URINE YELLOW (YELLOW); LEUKOCYTE ESTERASE ,URINE NEGATIVE (NEGATIVE); NITRITE, URINE NEGATIVE (NEGATIVE); UGLUCOSE NEGATIVE (NEGATIVE)
[2018-01-03] MEDS ORDERED: MORPHINE SULFATE 4 MG/ML SYR IVP ONE (06:50)
[2018-01-03] MEDS ORDERED: MORPHINE SULFATE 4 MG/ML SYR IVP PRN (06:55)
[2018-01-03] MEDS ORDERED: ACETAMINOPHEN 325 MG TAB PO PRN (06:55)
[2018-01-03] MEDS ORDERED: HYDROcodone/APAP 7.5/325 MG 1 TAB PO PRN (06:55)
[2018-01-03] MEDS ORDERED: DOCUSATE SODIUM 100 MG GELCAP PO PRN (06:55)
[2018-01-03] MEDS ORDERED: ONDANSETRON 4 MG/2 ML VIAL IM/IVP PRN (06:55)
[2018-01-03 07:20] VITALS: BP 128/63
--- NOTE | 2018-01-03 07:20 | NUR ---
Patient will be admitted to care of [facility]. Admited to TELE. Will go to room 108A. Belongings list completed. BEDSIDE Report to RIAN PATEL. IV INFUSING UPON TRANSFER. RIAN PATEL MADE AWARE TO HANG LEVAQUIN IVPB FIRST DOSE.
--- NOTE | 2018-01-03 07:20 | NUR ---
PATIENT WAS TRANSFERRED FROM ER. REPORT WAS GIVEN AT BEDSIDE. PATIENT AMBULATED SELF TO BED, STEADY GAIT. RESPIRATION EVEN, UNLABOR ON ROOM AIR. SKIN DRY AND WARM. IV PATENT AND INTACT. IVF WAS HUNG. VS WAS TAKEN. MRSA WAS SWABBED. PLAN OF CARE WAS DISCUSSED WITH PATIENT AND FAMILY. PATIENT WAS ORIENTED TO ROOM, STAFF, AND CALL LIGHT. BED AT LOW POSITION, SIDE RAILS UP. CALL LIGHT WITHIN REACH
[2018-01-03 07:21] LABS: RBC,URINE 0-5 (RARE) /HPF (0-5); WBC,URINE 0-5 (RARE) /HPF (0-5)
[2018-01-03] MEDS: NACL 0.9% 1,000 ML IV SCH ×2 (08:26→17:59)
[2018-01-03 09:18] LABS: PROTHROMBIN TIME 10.4 secs (10.8-13.4)
--- NOTE | 2018-01-03 09:57 | NUR ---
FAXED INITIAL REVIEW TO [facility] [phone] PHONE [phone] X MARIBETH Thrasher
--- NOTE | 2018-01-03 10:19 | NUR ---
PATIENT HAS BEEN SCREENED AND CATEGORIZED MODERATE NUTRITION RISK. PATIENT WILL BE SEEN WITHIN 3-5 DAYS OF ADMISSION. 01/05/18 - 01/07/[address]
--- NOTE | 2018-01-03 11:30 | NUR ---
PATIENT AWAKE, ALERT. RESPIRATION EVEN, UNLABOR ON ROOM AIR. COMPLAINED OF ABDOMINAL PAIN 3/10, BUT TOLERABLE, WILL CONTINUE TO MONITOR. NO DISTRESS NOTED AT THIS TIME. CALL LIGHT WITHIN REACH.
[2018-01-03 12:00] VITALS: BP 122/52
[2018-01-03 12:42] LABS: MAGNESIUM 1.5 mg/dL (1.8-2.4); THYROID STIMULATING HORMONE 1.8 uIU/mL (0.34-3.74)
--- NOTE | 2018-01-03 13:00 | NUR ---
MED WAS GIVEN PER ORDER. ALL FAMILY'S QUESTIONS WERE ANSWERED. PATIENT IS RESTING COMFORTABLY
[2018-01-03] MEDS ORDERED: metroNIDAZOLE 500 MG/NS PREMIX 100 ML IV SCH (14:00)
--- NOTE | 2018-01-03 15:45 | NUR ---
PATIENT AWAKE, ALERT. RESPIRATION EVEN, UNLABOR ON ROOM AIR. DENIED PAIN, N/V AT THIS TIME. VS IS STABLE. NO DISTRESS NOTED. FAMILY AT BEDSIDE. CALL LIGHT WITHIN REACH
[2018-01-03 16:00] VITALS: BP 103/47
[2018-01-03] MEDS: FERRIC GLUCONATE 125 MG in NACL 0.9% 100 ML IV SCH (17:06)
--- NOTE | 2018-01-03 18:09 | NUR ---
PATIENT IS SLEEPING COMFORTABLY. RESPIRATION EVEN, UNLABOR ON ROOM AIR. IV PATENT AND INTACT. NO DISTRESS NOTED AT THIS TIME. FAMILY AT BEDSIDE. CALL LIGHT WITHIN REACH
--- NOTE | 2018-01-03 19:30 | NUR ---
ENDORSEMENT GIVEN TO THE WASTEWATER PROJECT ENGINEER NURSE. PATIENT IS STABLE AT THIS TIME
--- NOTE | 2018-01-03 19:31 | NUR ---
RECEIVED BEDSIDE REPORT FROM DAY SHIFT NURSE CUONG RN, PT STABLE, NO DISTRESS NOTED, IV TO LAC 22G RUNNING NS @ 90ML/HR, INFUSING WELL, PT ON ROOM AIR NO SOB, INITIAL ASSESSMENT DONE, ALL SAFETY PRECAUTION MET, WILL CONTINUE TO MONITOR.
[2018-01-03 20:00] VITALS: BP 102/48
[2018-01-03] MEDS: POLYETHYLENE GLYCOL 17 GM/PKT PO SCH (20:44)
[2018-01-03] MEDS: ATORVASTATIN 20 MG TAB PO SCH (20:44)
[2018-01-03] MEDS: metroNIDAZOLE 500 MG/NS PREMIX 100 ML IV SCH (20:45)
--- NOTE | 2018-01-03 20:45 | NUR ---
DUE MEDICATION GIVEN, PT TOLERATED WELL, NO DISTRESS NOTED, CALL LIGHT WITHIN REACH, WILL CONTINUE TO MONITOR.
--- NOTE | 2018-01-03 23:15 | NUR ---
PT AMBULATED TO RESTROOM AND BACK TO BED, NO DISTRESS NOTED, TAKEN PT V/S, V/S WNL, PT RESTING, NO SOB, CALL LIGHT WITHIN REACH, WILL CONTINUE TO MONITOR.
[2018-01-04] VITALS: BP 128/55
[2018-01-04] MEDS: NACL 0.9% 1,000 ML IV SCH (00:24)
--- NOTE | 2018-01-04 02:10 | NUR ---
CHECKED ON PT, PT SLEEPING, NO DISTRESS NOTED, CALL LIGHT WITHIN REACH, WILL CONTINUE TO MONITOR.
[2018-01-04 04:00] VITALS: BP 136/88
--- NOTE | 2018-01-04 04:20 | NUR ---
CHECKED ON PT, PT SLEEPING, NO DISTRESS NOTED, CALL LIGHT WITHIN REACH, WILL CONTINUE TO MONITOR.
[2018-01-04] MEDS: metroNIDAZOLE 500 MG/NS PREMIX 100 ML IV SCH ×3 (04:27→20:34)
[2018-01-04] MEDS: LEVOTHYROXINE 0.025 MG TAB PO SCH (05:53)
[2018-01-04 06:16] LABS: T4 (THYROXINE) 6.8 ug/dL (4.5-12.0)
--- NOTE | 2018-01-04 07:20 | NUR ---
ASSUMED CONTINUITY OF CARE. NO SIGNS AND SYMPTOMS OF ACUTE DISTRESS NOTICED. INITIAL ASSESSMENT DONE. PT. SULY -YISEL AT BEDSIDE. EXPLAINED TO PT. AND PT. SON -YISEL ABOUT DIAGNOSIS, PLAN OF CARE, PAIN MANAGEMENT TEACHING, USE OF CALL LIGHT/BED/TV/BATHROOM. VERBALIZED UNDERSTANDING. CALL LIGHT WITHIN REACH.
--- NOTE | 2018-01-04 07:27 | NUR ---
ENDORSED PLAN OF CARE TO DAY SHIFT NURSE GOOD GARG, PT STABLE, NO DISTRESS NOTED, CALL LIGHT WITHIN REACH.
[2018-01-04 08:00] VITALS: BP 122/61
--- NOTE | 2018-01-04 08:00 | NUR ---
Patient's Plan of Care was discussed and reviewed with ACCESS CLINICIAN: GOOD
[2018-01-04] MEDS: HYDROCHLOROTHIAZIDE 25 MG TAB PO SCH (08:24)
[2018-01-04] MEDS: LACTOBACILLUS RHAMNOSUS GG 1 EACH CAP PO SCH (08:24)
[2018-01-04] MEDS: SENNA 8.6 MG TAB PO SCH (08:24)
[2018-01-04] MEDS: amLODIPine 5 MG TAB PO SCH (08:25)
[2018-01-04] MEDS: ASPIRIN 81 MG TAB.CHEW PO SCH (08:25)
[2018-01-04] MEDS: POLYETHYLENE GLYCOL 17 GM/PKT PO SCH ×2 (08:25→20:34)
--- NOTE | 2018-01-04 10:00 | NUR ---
DR. HWANG CAME, REVIEWED PT. CHART, SEEN PT. AND SPOKE TO PT. SULY NOLASCO AT BEDSIDE.
[2018-01-04 10:02] LABS: BASOPHILS % (AUTO) 0.1 % (0.0-2.0); EOSINOPHILS % (AUTO) 0.1 % (0.0-4.0); HEMATOCRIT 27.5 % (36-48); HEMOGLOBIN 9.1 g/dL (12.0-16.0); LYMPHOCYTES # (AUTO) 0.6 K/uL (2.5-16.5); LYMPHOCYTES % (AUTO) 7.9 % (20.5-51.1); MEAN CORPUSCULAR HEMOGLOBIN 31 pg (27-31); MEAN CORPUSCULAR HGB CONC 33 g/dL (33-37); MEAN CORPUSCULAR VOLUME 92.4 fL (80-94); MONOCYTES # (AUTO) 0.4 K/uL (0.8-1.0); MONOCYTES % (AUTO) 5.3 % (1.7-9.3); NEUTROPHILS % (AUTO) 86.6 % (42.2-75.2); PLATELET COUNT (AUTO) 112 K/uL (140-450); RED BLOOD CELL COUNT(AUTO) 2.97 MIL/uL (4.20-5.40); RED CELL DISTRIBUTION WIDTH 13.3 % (11.6-13.7); WHITE BLOOD COUNT (AUTO) 8.1 K/uL (4.8-10.8)
--- NOTE | 2018-01-04 10:10 | NUR ---
WENT TO BATHROOM WITH ASSISTANCE FROM PT. DAUGHTER IN-LAW. TOLERATED WELL. NO C/O PAIN.
[2018-01-04 10:17] LABS: ANION GAP 13.1 (8-16); CARBON DIOXIDE 24.3 mmol/L (21-32); CHLORIDE 106 mmol/L (98-107); GLUCOSE 157 mg/dL (74-106); POTASSIUM 3.4 mmol/L (3.5-5.1); SODIUM SERUM 140 mmol/L (136-145); UREA NITROGEN, BLOOD 15 mg/dL (7-18)
[2018-01-04 10:21] LABS: MAGNESIUM 1.8 mg/dL (1.8-2.4); PHOSPHORUS 2.7 mg/dL (2.5-4.9)
--- NOTE | 2018-01-04 11:20 | NUR ---
DR. AL, RESIDENTS MD AND CHARGE NURSE CAME AND SPOKE TO PT. AND PT. SULY NOLASCO AT BEDSIDE.
[2018-01-04 12:00] VITALS: BP 121/55
[2018-01-04 12:13] LABS: FOLIC ACID 18.8 ng/mL (>3.0)
--- NOTE | 2018-01-04 14:55 | NUR ---
INFORMED DR. LITTLE ABOUT PT. K 3.4. ALSO INFORMED CHARGE NURSE REKHA LOUISE.
[2018-01-04] MEDS ORDERED: POTASSIUM CHLORIDE 10 MEQ TABER PO SCH (14:58)
--- NOTE | 2018-01-04 15:22 | NUR ---
WENT TO BATHROOM WITHOUT ASSISTANCE. TOLERATED WELL. NO C/O PAIN. NO SOB, NOTED.
[2018-01-04 16:00] VITALS: BP 129/72
[2018-01-04] MEDS: FERRIC GLUCONATE 125 MG in NACL 0.9% 100 ML IV SCH (16:30)
--- NOTE | 2018-01-04 19:20 | NUR ---
BEDSIDE REPORT GIVEN TO AYAKA LOUISE. IVF INFUSING WELL AT TKO. FAMILY MEMBERS ON BEDSIDE. IN STABLE CONDITION.
--- NOTE | 2018-01-04 19:21 | NUR ---
RECEIVED REPORT FROM DAY SHIFT, PT IS A/OX4, ON ROOM AIR. PT HAS A 20G IV TO LEFT AC. PT AMBULATES WITH STEADY GAIT, SKIN IS INTACT. UPDATED BOARD. VITAL SIGNS WITHIN NORMAL LIMITS. PT IN STABLE CONDITION, NO SIGNS OF DISTRESS NOTED. BED IN LOWEST POSITION, CALL LIGHT WITHIN REACH. WILL CONTINUE TO MONITOR.
[2018-01-04 20:00] VITALS: BP 125/47
[2018-01-04] MEDS: ATORVASTATIN 20 MG TAB PO SCH (20:34)
--- NOTE | 2018-01-04 20:35 | NUR ---
ADMINISTERED SCHEDULED MEDICATIONS, PT TOLERATED WELL. PT IN STABLE CONDITION, NO SIGNS OF DISTRESS NOTED. BED IN LOWEST POSITION, CALL LIGHT WITHIN REACH. WILL CONTINUE TO MONITOR.
[2018-01-05] VITALS: BP 117/47
--- NOTE | 2018-01-05 | NUR ---
VITAL SIGNS WITHIN NORMAL LIMITS. PT IN STABLE CONDITION, NO SIGNS OF DISTRESS NOTED. BED IN LOWEST POSITION, CALL LIGHT WITHIN REACH. WILL CONTINUE TO MONITOR.
[2018-01-05 04:00] VITALS: BP 123/42
--- NOTE | 2018-01-05 04:00 | NUR ---
VITAL SIGNS WITHIN NORMAL LIMITS. PT IN STABLE CONDITION, NO SIGNS OF DISTRESS NOTED. BED IN LOWEST POSITION, CALL LIGHT WITHIN REACH. WILL CONTINUE TO MONITOR.
[2018-01-05] MEDS: metroNIDAZOLE 500 MG/NS PREMIX 100 ML IV SCH (05:04)
[2018-01-05] MEDS: LEVOTHYROXINE 0.025 MG TAB PO SCH (06:33)
[2018-01-05] MEDS ORDERED: METR250T2 PO (06:54)
[2018-01-05] MEDS ORDERED: LACT1.4C PO (06:54)
[2018-01-05] MEDS ORDERED: LEVO750T2 PO (06:54)
[2018-01-05 07:15] LABS: BASOPHILS % (AUTO) 0.3 % (0.0-2.0); EOSINOPHILS % (AUTO) 0.4 % (0.0-4.0); HEMATOCRIT 29.9 % (36-48); HEMOGLOBIN 10.1 g/dL (12.0-16.0); LYMPHOCYTES # (AUTO) 0.9 K/uL (2.5-16.5); LYMPHOCYTES % (AUTO) 13.8 % (20.5-51.1); MEAN CORPUSCULAR HEMOGLOBIN 31 pg (27-31); MEAN CORPUSCULAR HGB CONC 34 g/dL (33-37); MEAN CORPUSCULAR VOLUME 92.3 fL (80-94); MONOCYTES # (AUTO) 0.4 K/uL (0.8-1.0); MONOCYTES % (AUTO) 5.8 % (1.7-9.3); NEUTROPHILS # (AUTO) 5.2 K/uL (1.8-7.7); NEUTROPHILS % (AUTO) 79.7 % (42.2-75.2); PLATELET COUNT (AUTO) 128 K/uL (140-450); RED BLOOD CELL COUNT(AUTO) 3.24 MIL/uL (4.20-5.40); RED CELL DISTRIBUTION WIDTH 13.1 % (11.6-13.7); WHITE BLOOD COUNT (AUTO) 6.6 K/uL (4.8-10.8)
--- NOTE | 2018-01-05 07:17 | NUR ---
ENDORSED PT TO DAY SHIFT NURSE FOR CONTINUITY OF CARE. PT IN STABLE CONDITION.
--- NOTE | 2018-01-05 07:18 | NUR ---
REPORT RECEIVED FROM RECEPTIONIST NURSE NURSE, PT AWAKE ALERT, RESP EVEN UNLABORED, SKIN WARM DRY COLOR WNL, PT DENIES PAIN OR DISCOMFORT, DAUGHTER AT BEDSIDE, PLAN OF CARE REVIEWED, ALL SAFETY MEASURES IN PLACE, WILL CONTINUE TO MONITOR.
[2018-01-05 07:24] LABS: ANION GAP 14.5 (8-16); CARBON DIOXIDE 26.3 mmol/L (21-32); CHLORIDE 107 mmol/L (98-107); GLUCOSE 109 mg/dL (74-106); POTASSIUM 3.8 mmol/L (3.5-5.1); SODIUM SERUM 144 mmol/L (136-145); UREA NITROGEN, BLOOD 12 mg/dL (7-18)
[2018-01-05 07:30] LABS: MAGNESIUM 1.6 mg/dL (1.8-2.4); PHOSPHORUS 2.5 mg/dL (2.5-4.9)
[2018-01-05 08:00] VITALS: BP 119/51
[2018-01-05] MEDS: ASPIRIN 81 MG TAB.CHEW PO SCH (08:38)
[2018-01-05] MEDS: LACTOBACILLUS RHAMNOSUS GG 1 EACH CAP PO SCH (08:39)
[2018-01-05] MEDS: HYDROCHLOROTHIAZIDE 25 MG TAB PO SCH (08:40)
--- NOTE | 2018-01-05 08:45 | NUR ---
AM MEDS GIVEN PT ROD WELL, PT STATES SHE JUST HAD LOOSE STOOL, STOOL SOFTNER AND LAXATIVE.
[2018-01-05] MEDS: POLYETHYLENE GLYCOL 17 GM/PKT PO SCH (09:00)
[2018-01-05] MEDS: amLODIPine 5 MG TAB PO SCH (09:00)
[2018-01-05] MEDS ORDERED: LEVOFLOXACIN 750 MG/D5W PREMIX 150 ML IV SCH (09:00)
[2018-01-05] MEDS: SENNA 8.6 MG TAB PO SCH (09:00)
[2018-01-05] MEDS ORDERED: PSYLLIUM 12.2 GM/PKT PO SCH (09:00)
[2018-01-05 12:00] VITALS: BP 116/50
--- NOTE | 2018-01-05 12:30 | NUR ---
PT SITTING UP EATING LUNCH, DC INSTRUCTION AND RX GIVEN AND EXPLAINED TO PT AND HER SON, THEY VERBALIZED FULL UNDERSTANDING, DC HOME WITH FAMILY AFTER LUNCH.
--- NOTE | 2018-01-05 12:40 | NUR ---
PT ESCORTED OUT TO FRONT LOBBY IN WHEELCHAIR, DC HOME NOW WITH FAMILY.
== END 2018-01-05 12:40 | disposition home or self-care (01) | DRG 244 ==
LOC: MED 04:25 → MTU 06:59
PROVIDERS: ADMIT Family Medicine Sports Medicine; ATTEND Family Medicine Sports Medicine
DX: K57.32 Diverticulitis of large intestine without perforation or abscess without bleeding (principal); N17.0 Acute kidney failure with tubular necrosis; I10 Essential (primary) hypertension; E03.9 Hypothyroidism, unspecified; E87.6 Hypokalemia; K21.9 Gastro-esophageal reflux disease without esophagitis; M19.90 Unspecified osteoarthritis, unspecified site; E11.51 Type 2 diabetes mellitus with diabetic peripheral angiopathy without gangrene; D50.9 Iron deficiency anemia, unspecified; Z79.82 Long term (current) use of aspirin; Z79.899 Other long term (current) drug therapy; Z82.49 Family history of ischemic heart disease and other diseases of the circulatory system
CPT/HCPCS: 36415; 71045; 80048; 80053; 81001; 82607; 82728; 82746; 83036; 83540; 83605; 83690; 83735; 83880; 84100; 84436; 84443; 84479; 85025; 85045; 85610; 87040; 87081; 87086; 93005; 96361; 96365; 96375; 99285; J1956; J2270; J2405; J2916; J3010; J3490; J7030; Q0092